=== PATIENT | female | born 1995 | race Caucasian/White ===

== ENCOUNTER 2021-12-05 14:55 | Emergency (ER) | payer OTHER ==
[2021-12-05] MEDS ORDERED: SODIUM CHLORIDE 0.9% 1,000 ML IV ONE (17:22)
[2021-12-05] MEDS ORDERED: METOCLOPRAMIDE 5 MG/ML 2 ML VIAL IVP STA (17:22)
[2021-12-05] MEDS ORDERED: diphenhydrAMINE 50 MG/ML 1 ML VIAL IVP STA (17:22)
[2021-12-05] MEDS ORDERED: ACETAMINOPHEN IV (For NPO) 1,000 MG in EMPTY BAG 1 BAG IVPB STA (17:22)
--- NOTE | 2021-12-05 17:26 | ED ---
Headache HPI - General Chief Complaint: Headache Stated Complaint: Headache Time Seen by Provider: 12/05/21 17:02 Mode of arrival: ambulatory Limitations: no limitations - History of Present Illness Initial Comments: 26 year-old female patient who is 10 weeks presents to the emergency department for evaluation of migraine headache. States she does have history of migraines. States it started early this morning to the posterior head, now is located over the left eye. States she did attempt to take tylenol and benadryl around 0500 this morning, but did vomit afterwards. States she has been very nauseated with this and afraid to take any more medications. She states her symptoms are typical of her usual migraines. She denies any blurred or double vision. Denies numbness, tingling, weakness to her extremities. Denies any dizziness or fainting. Denies any recent head injury. She denies any abdominal pain, vaginal bleeding, or vaginal discharge. She has not yet seen an ADVERTISING SALES EXECUTIVE but does have an appointment this week with [facility]. - Related Data Previous Rx's Medication Instructions Recorded Metoclopramide [Reglan] 10 mg PO Q8H PRN #10 tab 12/05/21 Allergies Allergy/AdvReac Type Severity Reaction Status Date / Time sertraline [From Zoloft] Allergy Rash/Hives Verified 12/05/21 15:03 Review of Systems ROS Statement: Those systems with pertinent positive or pertinent negative responses have been documented in the HPI. ROS Other: All systems not noted in ROS Statement are negative. Past Medical History Additional Past Medical History / Comment(s): migraines History of Any Multi-Drug Resistant Organisms: None Reported Past Surgical History: Section Past Psychological History: Anxiety Smoking Status: Current every day smoker Past Alcohol Use History: None Reported Past Drug Use History: None Reported General Exam Limitations: no limitations General appearance: alert, in no apparent distress, other (This is a well-devel oped, well-nourished adult female in no acute distress.) Eye exam: Present: normal appearance, PERRL, EOMI. Absent: scleral icterus, conjunctival injection, nystagmus, periorbital swelling ENT exam: Present: normal exam, normal oropharynx, mucous membranes moist Respiratory exam: Present: normal lung sounds bilaterally. Absent: respiratory distress, wheezes, rales, rhonchi, stridor Cardiovascular Exam: Present: regular rate, normal rhythm, normal heart sounds. Absent: systolic murmur, diastolic murmur, rubs, gallop, clicks GI/Abdominal exam: Present: soft, normal bowel sounds. Absent: distended, tenderness, guarding, rebound, rigid Neurological exam: Present: alert, oriented X3, CN II-XII intact, other (rapid alternating movements normal) Expanded Speech: Present: fluid speech Cranial nerves: EOM's Intact: Normal, Tongue Deviation: Normal, Facial Sensation: Normal Cerebellar function: Finger to Nose: Normal Motor strength exam: RUE: 5, LUE: 5, RLE: 5, LLE: 5 Course Vital Signs 12/05/21 12/05/21 14:58 17:02 Temperature 98.3 F 98.2 F Pulse Rate 91 66 Respiratory 16 18 Rate Blood Pressure 105/74 110/72 O2 Sat by Pulse 100 100 Oximetry Medical Decision Making - Medical Decision Making 26-year-old female patient is 10 weeks presents for migraine headache. Reports headache started this morning had some nausea and vomiting throat the day. Symptoms are typical for her usual migraine pattern. Physical examination is unremarkable. She is neurologically intact. Denies abdominal pain or vaginal discharge. Has appointment this week for care. He was given IV fluids, nausea medication, pain medication. Upon reevaluation she does report improvement symptoms. She does feel comfortable being discharged at this time. She'll be discharged follow up with primary care physician for recheck in 1-2 days. Return parameters discussed in detail. She verbalizes understanding and agrees with this plan. My attending is Dr. Ramos. Disposition Clinical Impression: Migraine Disposition: HOME SELF-CARE Condition: Good Instructions (If sedation given, give patient instructions): Migraine Headache (ED) Additional Instructions: Increase fluids. Rest. Follow-up with the ADVERTISING SALES EXECUTIVE as soon as possible. Follow up with her primary care physician for recheck in 1-2 days. Return for any new, worsening, or concerning symptoms. Prescriptions: Metoclopramide [Reglan] 10 mg PO Q8H PRN #10 tab PRN Reason: Vomiting Is patient prescribed a controlled substance at d/c from ED?: No Referrals: None,Stated [Primary Care Provider] - 1-2 days Time of Disposition: 19:18
[2021-12-05 18:26] VITALS: TEMP 98.2
[2021-12-05 19:30] VITALS: BP 116/74; PULSE 75; RESP 16
== END 2021-12-05 19:29 | disposition home or self-care (01) ==
LOC: EC 14:55
DX: O26.891 Other specified pregnancy related conditions, first trimester (principal); O99.341 Other mental disorders complicating pregnancy, first trimester; G43.909 Migraine, unspecified, not intractable, without status migrainosus; F41.9 Anxiety disorder, unspecified; F17.200 Nicotine dependence, unspecified, uncomplicated; Z3A.10 10 weeks gestation of pregnancy
CPT/HCPCS: 99283; 96374; 96375; J1200; J2765; J0131

== ENCOUNTER 2023-04-04 06:02 | Day surgery (SDC) | payer OTHER ==
--- NOTE | 2023-03-31 10:42 | P.HPOB ---
History of Present Illness H&P Date: 03/31/23 Chief Complaint: Scheduled Surgery This is a 28 year old female presenting with a history of pelvic pain for the past 15 months and a desire for permanent sterilization. She has dysmenorrhea that she describes as severe. Tylenol and Midol do not improve the pain. She feels the pain in the midline with radiation to her cervix. She gets monthly regular menses every 28 days with periods last 5 days. Periods are medium in flow. She has had pre-syncopal episodes secondary to the pain. She has dyschezia and dyspareunia as well. Pelvic US in January 2023 showed a retroverted uterus 5.5 x 4.4 x 5.8 cm. Bilateral ovaries are non-enlarged, unremarkable. Past Medical History Additional Past Medical History / Comment(s): migraines, Gilbert syndrome History of Any Multi-Drug Resistant Organisms: None Reported Past Surgical History: Section Past Psychological History: Anxiety, Depression Smoking Status: Current every day smoker Past Alcohol Use History: None Reported Past Drug Use History: None Reported Medications and Allergies Home Medications Medication Instructions Recorded Confirmed Type Metoclopramide [Reglan] 10 mg PO Q8H PRN #10 tab 12/05/21 Rx Allergies Allergy/AdvReac Type Severity Reaction Status Date / Time sertraline [From Zoloft] Allergy Rash/Hives Verified 12/05/21 15:03 Exam Focused physical exam is performed. Patient is a healthy-appearing female in no apparent distress. Abdomen is soft, nontender to palpation. On pelvic exam, normal external female genitalia are noted. Vaginal vault is within normal limits without abnormal discharge or blood in the vault. Cervix is healthy- appearing without any lesions or discharge. Uterus is nontender to aplpation, no adnexal masses present on bimanual exam. Assessment and Plan Assessment: 28 year old female with chronic pain and clinical endometriosis who desires permanent sterilization and risk reduction who presents for scheduled Laparoscopic Bilateral Salpingectomy, Possible Fulgaration of Endometriosis Plan: The risks, benefits, and alternatives to surgery were discussed with the patient including risk of bleeding, infection, damage to surrounding structures including ovaries/bowel/ureters/bladder, risk of laparotomy, risk of postoperative VTE. Discussed that bilateral salpingectomy is non-reversible and she will never be able to achieve again with in-vitro fertilization. Patient understands these risks and desires to proceed with Laparoscopic Bilateral Salpingectomy, Possible Fulgaration of endometriosis. Time with Patient: Less than 30 (10 minutes)
[~2023-04-04 06:02] MED LIST: DEXAMETHASONE SOD PHOSPHATE 4 MG/ML 1 ML VIAL IV ONE; LACTATED RINGERS 1,000 ML IV SCH; LIDOCAINE 1% (10MG/ML) FOR IV START INTRADERMA PRN; MIDAZOLAM 2 MG/2 ML VIAL IV PRN; ONDANSETRON 4 MG/2 ML VIAL IVP ONE; Pre Op ABX Message 1 EACH MISC MISCELLANE ONE
[2023-04-04] MEDS ORDERED: MIDAZOLAM 2 MG/2 ML VIAL IVP ONE (06:45)
[2023-04-04] MEDS ORDERED: HYDROmorphone 0.5 MG/0.5 ML SYRINGE IVP PRN (07:00)
[2023-04-04] MEDS ORDERED: SUCCINYLCHOLINE CHLORIDE 200 MG/10 ML VIAL IV ONE (07:24)
[2023-04-04] MEDS ORDERED: fentaNYL (PF) 50 MCG/ML 2 ML AMP ONE (07:24)
[2023-04-04] MEDS ORDERED: PROPOFOL 10 MG/ML 20 ML VIAL IV ONE (07:24)
[2023-04-04] MEDS ORDERED: NEOSTIGMINE 1 MG/ML 10 ML VIAL ONE (07:24)
[2023-04-04] MEDS ORDERED: diphenhydrAMINE 50 MG/ML 1 ML VIAL ONE (07:24)
[2023-04-04] MEDS ORDERED: KETOROLAC 15 MG/ML 1 ML VIAL ONE (07:24)
[2023-04-04] MEDS ORDERED: LIDOCAINE 2% INJ 20 MG/ML (2 ML VIAL) ONE (07:24)
[2023-04-04] MEDS ORDERED: GLYCOPYRROLATE 0.2 MG/ML 2 ML VIAL ONE (07:24)
[2023-04-04] MEDS ORDERED: ROCURONIUM 10 MG/ML (5 ML VIAL) IV ONE (07:24)
[2023-04-04] MEDS ORDERED: MIDAZOLAM 2 MG/2 ML VIAL ONE (07:24)
[2023-04-04] MEDS ORDERED: BUPIVACAINE (PF) 0.25% 30 ML VIAL SQ ONE ×3 (07:54)
[2023-04-04 08:38] VITALS: TEMP 97.2
--- NOTE | 2023-04-04 08:41 | P.OP ---
Date of Procedure: 04/04/23 Preoperative Diagnosis: 1. Desires permanent sterilization 2. Desires risk reduction 3. History of pelvic pain, clinical endometriosis Postoperative Diagnosis: 1. Desires permanent sterilization 2. Desires risk reduction 3. Endometriosis Procedure(s) Performed: Laparoscopic Bilateral Salpingectomy, Fulguration of Endometriosis Implants: None Anesthesia: ELIJAH Surgeon: Chanel Shah Estimated Blood Loss (ml): 5 IV fluids (ml): 600 Urine output (ml): 30 Pathology: other (bilateral fallopian tubes, free-floating intrabominal mass) Condition: stable Disposition: same day Indications for Procedure: This is a 28 year old female who desires permanent sterilization and risk reduction. She also has a history of chronic pelvic pain clinically consistent with endometriosis. Risks, benefits, and alternatives to laparoscopic bilateral salpingectomy, possible fulgaration of endometriosis, possible oophorectomy, possible laparotomy were discussed with the patient including risk of bleeding, infection, damage to surrounding structures, and postoperative VTE. I discussed with the patient that the sterilization is permanent and cannot be reversed, she would never be able to achieve again with IVF assistance. The patient understands these risks and desire to proceed with surgery as scheduled. Operative Findings: Normal appearing uterus, bilateral ovaries and tubes. Approximately 100 cc of hemoperitoneum noted upon entry. Small endometrial implants noted on bilateral uterosacral ligaments. Thin, filmy right-sided bowel adhesion to anterior abdominal wall. Slightly enlarged-appearing liver. Otherwise, normal pelvis and abdomen. Description of Procedure: Patient was taken to the OR with IV fluid running and pneumatic compression stockings on both legs. General anesthesia was obtained without difficulty. The patient was placed in the dorsal lithotomy position with Miguel-type stirrups with knees bent at 30 degree angles. Examination under anesthesia revealed a normal-sized, anteverted uterus. The patient as prepared and draped. The bladder was emptied. A speculum was placed into the vagina. The anterior lip of the cervix was grasped with a single-toothed tenaculum. The uterus sounded to 8 cm. A uterine manipulator was introduced. The periumbilical skin was manually elevated. A horizontal skin incision was made inferior to the umbilical fold. The Veress needle was introduced into the peritoneal cavity at a straight angle without difficulty. A saline drop test was performed to validate intraperitoneal placement. The pneumoperitoneum was established with CO2 gas to a pressure of 15mmHg. A 5mm trocar was inserted into the abdomen under direct laparoscopic visualization. Intraabdominal survey revealed lack of any visceral or vascular injury. The pelvic anatomy was noted as above. Two additional laparoscopic assit ports were placed in the right and left lower quadrants. A Carline Grasper was used to shrimp picker the fimbriated end of the left fallopian tube. The LigaSure device was used to seal and ligate the fallopian tube sequentially to the level of the uterine cornua. The fallopian tube was then transected and removed through the laparoscopic port. This process was repeated on the right side. A small amount of hemoperitoneum was evacuated. Bilateral utersacral endometrial implants were cauterized with the extended bovie tip. A small, free-floating intraabdominal mass was found in the posterior cul-de-sac, potentially consistent with an epiploic appendage. This was removed and sent for pathology. Excellent hemostasis was noted at the end of the case. The patient tolerated the procedure well. All instruments were removed from the abdomen and vagina, and all counts were correct times two. The patient was taken to the recovery room in stable condition.
[2023-04-04 08:45] VITALS: RESP 16
[2023-04-04] MEDS ORDERED: LACTATED RINGERS 1,000 ML IV ONE (09:18)
[2023-04-04 09:57] VITALS: BP 118/76; PULSE 67
== END 2023-04-04 10:38 | disposition home or self-care (01) ==
LOC: OR 06:02
PROVIDERS: ATTEND Obstetrics & Gynecology
DX: Z30.2 Encounter for sterilization (principal); N80.213 Superficial endometriosis of bilateral fallopian tubes; F41.9 Anxiety disorder, unspecified; F32.A Depression, unspecified; F17.200 Nicotine dependence, unspecified, uncomplicated; Z79.899 Other long term (current) drug therapy
CPT/HCPCS: 81025; 58662; 58661; J2250; J0330; J1200; J1100; J2710; J2405; J3010; J1885; J2704; J2001; 88302; 88305

== ENCOUNTER → 2025-05-19 | Outpatient (CLI) | payer OTHER ==
--- NOTE | 2025-05-19 15:47 | MR ---
EXAMINATION TYPE: MR brain wo con DATE OF EXAM: 05/19/2025 6:36 AM COMPARISON: None. CLINICAL INDICATION: Female, 30 years old with history of G43.009 MIGRAINE W/O AURA, NOT INTRACTABLE, W/O ST, severe migraines, family history of migraines. TECHNIQUE: Multiplanar and multispin-echo imaging of the brain was performed . FINDINGS: The ventricles, basal cisterns and sulci overlying the cerebral convexities are within normal limits. There is no evidence for midline shift or mass effect. Acute intracranial hemorrhage or extra-axial collection is not evident. The brain parenchyma reveals no abnormal increased signal. No acute edema is identified. The paranasal sinuses and mastoid air cells are well-aerated. IMPRESSION: Unremarkable MRI of the brain. [facility], , 05/19/2025 3:44 PM
--- NOTE | 2025-05-20 20:21 | MR ---
EXAMINATION TYPE: MR angio head wo con DATE OF EXAM: 05/19/2025 6:30 AM COMPARISON: None. CLINICAL INDICATION: Female, 30 years old with history of G43.009 MIGRAINE W/O AURA, NOT INTRACTABLE, W/O ST, severe migraines, family history of migraines. TECHNIQUE: Three-dimensional [id number] intracranial MRA was performed with multiple intensity pr ojection images submitted and source data reviewed at the workstation. FINDINGS: The vertebrobasilar system as well as intracranial portions of the internal carotid arteries and thei r major tributaries are patent. I do not see evidence for sizable aneurysm or vascular malformation. IMPRESSION: Normal study. [facility], , 05/20/2025 8:19 PM
== END | disposition home or self-care (01) ==
LOC: RADMRIMAIN 05:48
PROVIDERS: ATTEND Psychiatry & Neurology Neurology
DX: G43.009 Migraine without aura, not intractable, without status migrainosus (principal); G43.829 Menstrual migraine, not intractable, without status migrainosus; J34.89 Other specified disorders of nose and nasal sinuses
CPT/HCPCS: 70544; 70551